=== PATIENT | male | born 1975 | race Caucasian/White ===

== ENCOUNTER 2016-07-12 10:29 | Emergency (ER) | payer BC ==
[2016-07-12 10:53] VITALS: BP 102/74
--- NOTE | 2016-07-12 12:51 | UC ---
Minor Trauma HPI - HPI Summary HPI Summary: LEFT WITHOUT BEING SEEN - History of Current Complaint Chief Complaint: UCTrauma Stated Complaint: WRIST AND ARM INJURY Time Seen by Provider: 07/12/16 12:49 - Allergies/Home Medications Allergies/Adverse Reactions: Allergies Allergy/AdvReac Type Severity Reaction Status Date / Time Shellfish Allergy Allergy Severe Hives Verified 01/05/16 14:29 Aspirin Allergy Unknown Verified 01/05/16 14:29 Reaction Details Home Medications: Home Medications Sleep Aid 07/12/16 [History] PMH/Surg Hx/FS Hx/Imm Hx Endocrine History Of: Denies: Diabetes, Thyroid Disease Cardiovascular History Of: Reports: Cardiac Disorders - Bradycardia, Pacemaker/ ICD - bradycardic Denies: Hypertension, Myocardial Infarction, Congestive Heart Failure, Deep Vein Thrombosis Respiratory History Of: Reports: Asthma Denies: COPD, Pneumonia, Pulmonary Embolism GI/ History Of: Denies: Ulcer, Gastrointestinal Bleed, Gall Bladder Disease, Kidney Stones, Renal Disease, Urosepsis Neurological History Of: Denies: TIA, Dementia, Seizures, Migraine Psychological History Of: Reports: Anxiety, Bipolar Disorder Denies: Depression, Schizophrenia Cancer History Of: Denies: Lung Cancer Other History Of: Negative For: Anticoagulant Therapy - Surgical History Surgical History: Yes Surgery Procedure, Year, and Place: pacemaker 12/2011; left shoulder bone scraping - Family History Known Family History: Positive: Hypertension - father, sister, and aunt, Other - GERD-sister and father Family History: CEREBRAL ANEURYSMS - BROTHER, MGF - Social History Alcohol Use: Rare Substance Use Type: Marijuana Substance Use Comment - Amount & Last Used: daily Smoking Status (MU): Current Every Day Smoker Type: Cigarettes Amount Used/How Often: 1 ppd Length of Time of Smoking/Using Tobacco: 18 years of age Have You Smoked in the Last Year: Yes - Immunization History Most Recent Influenza Vaccination: none Review of Systems All Other Systems Reviewed And Are Negative: No Physical Exam Triage Information Reviewed: Yes Vital Signs: Initial Vital Signs Temp 97.3 F 07/12/16 10:49 Pulse 65 07/12/16 10:49 Resp 16 07/12/16 10:49 BP 102/74 07/12/16 10:49 Pulse Ox 98 07/12/16 10:49 Minor Trauma Course/Dx - Differential Dx/Diagnosis Provider Diagnoses: LEFT WITHOUT BEING SEEN Discharge - Discharge Plan Condition: Stable Disposition: LEFT WITHOUT BEING SEEN Referrals: Sadiq Tee MD [Primary Care Provider] -
== END 2016-07-12 13:05 | disposition left against medical advice (07) ==
LOC: UCEAST 10:29
DX: M25.539 Pain in unspecified wrist (principal); Z53.21 Procedure and treatment not carried out due to patient leaving prior to being seen by health care provider

== ENCOUNTER 2017-09-30 15:31 | Emergency (ER) | payer BC, MEDICAID ==
[2017-09-30 15:45] VITALS: BP 101/63
--- NOTE | 2017-09-30 16:32 | RAD ---
INDICATION: Right hand injury. TECHNIQUE: 2 views of the right hand were obtained. FINDINGS: There is soft tissue swelling adjacent to the fifth metacarpal bone. The fifth metacarpal bone appears abnormally positioned relative to the other metacarpal bones and there is likely a subluxation or dislocation at the carpal metacarpal joint. No discrete fracture is not seen. IMPRESSION: ABNORMALLY POSITIONED FIFTH METACARPAL BONE SUSPICIOUS FOR A SUBLUXATION OR DISLOCATION AT THE CARPAL METACARPAL JOINT. RECOMMEND ORTHOPEDIC CONSULTATION AND CONSIDER CT IMAGING FOR FURTHER EVALUATION.
--- NOTE | 2017-09-30 16:38 | UC ---
Upper Extremity HPI - HPI Summary HPI Summary: 42 y/o male presents to the urgent care c/o Rt hand pain s/p hitting a metal stool around 1530pm today. Pt reports he was very angry and hit the stool. His pain 10/10 and unable to move his RT #4th and 5th fingers w/ mild swelling and bruising on the lateral side of his Rt hand. Pt states mild numbness and tingling sensation over the lateral side of his hand. Pt has not taken anything to alleviate pain. Pt declines narcotics for pain. Pt deneis fever. SOB, chest pain, abdominal pain, N/V/D. - History of Current Complaint Chief Complaint: UCUpperExtremity Stated Complaint: HAND INJURY Time Seen by Provider: 09/30/17 16:26 Hx Obtained From: Patient ?: No Onset/Duration: Sudden Onset, Lasting Hours - 2 hrs, Still Present Severity Initially: Severe Severity Currently: Severe Pain Intensity: 10 Pain Scale Used: 0-10 Numeric Location Of Pain: Is Discrete @ - RT lateral side of hand Character: Sharp Aggravating Factor(s): Movement, Flexion Alleviating Factor(s): Ice, Rest Associated Signs And Symptoms: Positive: Swelling, Redness, Bruising, Numbness/ Tingling - Risk Factors Non-Orthopedic Risk Factor: Negative DVT Risk Factors: Negative Septic Arthritis Risk Factor: Negative - Allergies/Home Medications Allergies/Adverse Reactions: Allergies Allergy/AdvReac Type Severity Reaction Status Date / Time aspirin Allergy Unknown Verified 09/30/17 15:39 Reaction Details PMH/Surg Hx/FS Hx/Imm Hx Previously Healthy: Yes Cardiovascular History: Pacemaker/ICD Psychological History: Post Traumatic Stress Disorder Other History Of: Negative For: Anticoagulant Therapy - Surgical History Surgical History: Yes Surgery Procedure, Year, and Place: pacemaker 12/2011; left shoulder bone scraping - Family History Known Family History: Positive: Hypertension - father, sister, and aunt, Other - GERD-sister and father Family History: CEREBRAL ANEURYSMS - BROTHER, MGF - Social History Occupation: Employed Full-time Lives: With Family Alcohol Use: None Substance Use Type: Marijuana Substance Use Comment - Amount & Last Used: daily Smoking Status (MU): Current Every Day Smoker Type: Cigarettes Amount Used/How Often: 1 ppd Length of Time of Smoking/Using Tobacco: 18 years of age Have You Smoked in the Last Year: Yes - Immunization History Most Recent Influenza Vaccination: none Review of Systems Constitutional: Negative Skin: Bruising - RT lateral side of hand w/ mild abrasion Eyes: Negative ENT: Negative Respiratory: Negative Cardiovascular: Negative Gastrointestinal: Negative Genitourinary: Negative Motor: Decreased ROM - RT hand Musculoskeletal: Decreased ROM - RT hand and fifth finger s/p injury, Other: - RT hand pain s/p injury Neurological: Numbness - RT lateral side of hand Psychological: Negative Is Patient Immunocompromised?: No All Other Systems Reviewed And Are Negative: Yes Physical Exam - Summary Physical Exam Summary: Vital Signs Reviewed: Yes General: Well-Appearing, No Pain Distress, Well-Nourished - male w/o any apparent pain distress Eyes: Positive: Conjunctiva Clear - PERRLA, EOMI ENT: Positive: Normal ENT inspection, Hearing grossly normal, Pharynx normal, TMs normal, Uvula midline Neck: Positive: Supple, Nontender, No Lymphadenopathy Respiratory: Positive: Chest non-tender, Lungs clear, Normal breath sounds, No respiratory distress Cardiovascular: Positive: RRR, No Murmur, Pulses Normal, Brisk Capillary Refill Abdomen Description: Positive: Nontender, No Organomegaly, Soft. Negative: CVA Tenderness (R), CVA Tenderness (L) Bowel Sounds: Positive: Present Musculoskeletal: Positive: Strength Intact, Other: Neurological Exam: Normal Musculoskeletal: Positive: hand: the R hand is with obvious asymmetry and deformity when compared to the L hand on the lateral side. Mild abrasion w/ redness and brusing and sild swelling on the lateral side of the RT hand, no open wounds, mild swelling, No overlying erythema or warmth. No bony crepitus. Point tenderness over the RT fifth and fourth metacarpals. No scaphoid fullness or tenderness to direct palpation or axial load. Decreased ROM due to pain of 5th and 4th phalanx. Motor/sensory function of ulnar, radial, median nerves intact. Ulnar and radial pulses intact. capillary refill brisk. Psychological Exam: Normal Skin Exam: Normal Triage Information Reviewed: Yes Vital Signs: Initial Vital Signs Temp 97.2 F 09/30/17 15:40 Pulse 78 09/30/17 15:40 Resp 21 09/30/17 15:40 BP 101/63 09/30/17 15:40 Pulse Ox 99 09/30/17 15:40 Upper Extremity Course/Dx - Course Course Of Treatment: 42 y/o male presents to the urgent care c/o Rt hand pain s/ p hitting a metal stool around 1530pm today. Pt reports he was very angry and hit the stool. His pain 10/10 and unable to move his RT #4th and 5th fingers w/ mild swelling and bruising on the lateral side of his Rt hand. Pt states mild numbness and tingling sensation over the lateral side of his hand. Pt has not taken anything to alleviate pain. Pt declines narcotics for pain. Pt deneis fever. SOB, chest pain, abdominal pain, N/V/D. Hx obtained. PE performed. Pt given at the clinic Ibuprofen PO for pain. pt tolerated well medication. X-ray of the Rt hand ordered: Impression: Abnormally position of the fifth metacarpal bone suspicion of a subluxation or dislocation at the carpal metacarpal joint, No discrete fracture observed, radiologist recommends orthopedic consult. Orthopedic cotton roll packer DR Garcia called for consult. DR Reynoso arrived at the clinic to try to reduce dislocation. DR Reynoso reduced the dislocation and immobilized the RT hand w/ an Ulnar gutter splint. Pt tolerated well procedure. Pt neurovascular intact after splint procedure. Pt was able to flex 4th and 5th phlanx better, deformity improved. Pt Advised RICE: Rest, Ice, elevation, Rx Ibuprofen PO for pain. There was no neurovascular compromise after splint. Dr Garcia will see the PT in 5 days at her office for further management. Pt strongly advised to call her office and make an appt for [place] 10/05/2017. Pt understood and agreed w/ plan of care. pt left the clinic hemodynamically stable , A&Ox3 - Differential Dx/Diagnosis Differential Diagnosis/HQI/PQRI: Contusion, Fracture (Closed), Strain, Sprain, Other - dislocation Provider Diagnoses: 1- RT fifth carpal metacarpal joint dislocation s/p injury. 2- RT hand pain s/p injury Discharge - Sign-Out/Discharge Documenting (check all that apply): Discharge - Discharge Plan Condition: Stable Disposition: HOME Prescriptions: Ibuprofen TAB* [Motrin TAB* 800 MG] 800 mg PO Q6H PRN #30 tab PRN Reason: Pain Patient Education Materials: Finger Dislocation (ED) Referrals: Sadiq Tee MD [Primary Care Provider] - 2 Days Sandra Reynoso MD [Medical Doctor] - 1 Day Additional Instructions: 1-Please take medications as directed after meals to alleviate pain and swelling. 2-Please apply ice, keep your hand immobilized with the splint. 3- Please f/u with Orthopedic Dr Reynoso Please call to her office tomorrow and make an appt for Thursday10/05/2017 for further evaluation and treatment. - Billing Disposition and Condition Condition: STABLE Disposition: HOME
[2017-09-30] MEDS ORDERED: Ibuprofen TAB* 400 MG PO ONE (16:47)
--- NOTE | 2017-09-30 20:35 | CONS ---
CONSULTATION NOTE: DATE OF CONSULT: 09/30/17 - URGENT CARE CHIEF COMPLAINT: Right hand pain. HISTORY OF PRESENT ILLNESS: Anjel is a 42-year-old man who in anger today, punched a stool, injuring his right hand. He is right handed. He came to the [facility] and had x-rays, which show a dislocation of his fifth carpometacarpal joint. PHYSICAL EXAM: On exam, he has some abrasions on the dorsal aspect of his hand at the MP joints of the ring finger and middle finger. He has an obvious deformity of the hand, cannot make a fist with his little finger, but can flex the other fingers. He has full extension of his fingers. Skin is otherwise intact. Neurovascular function in intact. DIAGNOSTIC STUDIES/LAB DATA: X-ray AP, lateral and oblique of the right hand show the dislocation of the fifth carpometacarpal joint. There may be a small fracture fragment as well. IMPRESSION: Right fifth carpometacarpal dislocation. PLAN: With the assistance of the [facility] doctor, traction and manipulation were placed at the fifth CMC joint and there was a clunking reduction of the joint and the patient was able to relax at the end. The deformity was much improved, he was able to better flex his fingers. He was splinted in an ulnar gutter splint with wrist in little bit extension and the MP joints in little bit of flexion. I will see him back in followup in my office in 5 days for re-x-ray of the right hand to assess whether or not the CMC joint has remained reduced. If not, likely he will need surgical treatment in the form of closed reduction pinning of the right fifth carpometacarpal joint. The [facility] doctor prescribed some oral pain medication for the patient, he declined any narcotic medication and I will see him back in followup for reevaluation as mentioned in 5 days. He was instructed to continue to ice and elevate his hand and call for any problems. [id number]/[facility] #: [id number] [facility] HOSPITALDana
== END 2017-09-30 17:20 | disposition home or self-care (01) ==
LOC: UCEAST 15:31
DX: S63.054A Dislocation of other carpometacarpal joint of right hand, initial encounter (principal); S60.511A Abrasion of right hand, initial encounter; W22.8XXA Striking against or struck by other objects, initial encounter; Y93.9 Activity, unspecified; Y92.9 Unspecified place or not applicable; M79.641 Pain in right hand; Z95.810 Presence of automatic (implantable) cardiac defibrillator; F43.10 Post-traumatic stress disorder, unspecified; Z88.6 Allergy status to analgesic agent; F17.210 Nicotine dependence, cigarettes, uncomplicated
CPT/HCPCS: 26670; 99202; A9270-GY; G0463

== ENCOUNTER 2017-10-09 10:16 | Day surgery (SDC) | payer MEDICAID ==
--- NOTE | 2017-10-02 10:39 | HP ---
HISTORY AND PHYSICAL: DATE OF ADMISSION/SURGERY: 10/06/17 DATE OF OFFICE VISIT/ENCOUNTER: 10/01/17 ATTENDING SURGEON: Sandra Reynoso MD* (dictated by JUANA Chester). PROCEDURE: Right small finger carpometacarpal closed reduction and pinning. CHIEF COMPLAINT: Right fifth metacarpal subluxation. HISTORY OF PRESENT ILLNESS: This is a 42-year-old male, who suffered injury to his right hand on 09/30/17. The patient reports that out of anger, he punched a stool injuring his right hand. He went to [facility], and had x-rays which showed a dislocation of his fifth carpometacarpal joint. Dr. Reynoso was consulted and a closed reduction was performed on the joint. The patient was placed in an ulnar gutter splint. He followed up in the office with Dr. Reynoso on 10/01/17 where updated x-rays showed an incomplete reduction. Dr. Reynoso is recommending surgical intervention at this time for best outcome and the patient has consented to proceed. He has history of cardiac issues and had a pacemaker placed in 2011. He has not followed up with his butter maker in a couple of years. Prior to proceeding with surgery, we will obtain clearance from a butter maker and also obtain a CT scan of the right hand. PAST MEDICAL HISTORY: 1. Anxiety/depression. 2. Posttraumatic stress disorder. 3. History of syncope with symptomatic bradycardia. 4. Asthma. 5. History of GI bleeds. PAST SURGICAL HISTORY: 1. Pacemaker placement in 2011. 2. Left shoulder surgery. CURRENT MEDICATIONS: 1. Acetaminophen 500 mg 2 tablets p.r.n. 2. Klonopin 1 mg 1 tab t.i.d. p.r.n. anxiety. 3. Ibuprofen p.r.n. ALLERGIES: No known drug allergies. Allergy to SHELLFISH. FAMILY MEDICAL HISTORY: Bipolar disorder and hyperlipidemia. SOCIAL HISTORY: The patient is currently disabled. He is a current smoker. He smokes approximately a pack per day and has done so for the past 20 years. He also smokes marijuana on a regular basis. He drinks alcohol on rare occasion. REVIEW OF SYSTEMS: General: Negative for fevers, chills, or night sweats. No known anesthesia problems. HEENT: Negative for headache, lightheadedness, or syncopal episodes. Integumentary: Negative for abrasions, lesions, or open wounds. Cardiothoracic: Negative for hypertension. Positive for occasional chest pain related to anxiety. Negative for palpitations and edema. Pulmonary : Positive for shortness of breath with exertion, negative for chronic cough, COPD. GI: Negative for nausea, vomiting, diarrhea, constipation, and GERD. : Negative for nocturia, urinary frequency, urgency, history of UTIs, and kidney problems. Musculoskeletal: Positive for current complaint. Negative for chronic or intermittent back pain. Neurologic: Positive for PTSD, depression/anxiety. Negative for paresthesias, numbness, history of seizure, stroke, or epilepsy. Endocrine: Negative for diabetes and thyroid issues. Hematologic: Negative for easy bruising, anemia, excessive bleeding, history of DVT. Infectious Disease: Negative for history of MRSA, hepatitis C, HIV. PHYSICAL EXAMINATION GENERAL: Well-developed, well-nourished, 42-year-old male in no acute distress. VITAL SIGNS: Height 6 feet tall, weight 150 pounds, pulse rate 81, blood pressure 136/80. HEENT: Normocephalic, atraumatic. Pupils are equal, round, and reactive to light and accommodation. Extraocular movements are intact. Throat is clear. NECK: Supple. No palpable lymph nodes. RESPIRATORY: Lungs are clear to auscultation bilaterally. No wheezes, rales, or rhonchi. CARDIOVASCULAR: Regular rate and rhythm. S1, S2. No murmurs, rubs, or gallops. ABDOMEN: Positive bowel sounds, soft, nontender. NEUROLOGIC: Alert and oriented x3. Cranial nerves II through XII are intact. Sensation is intact to light touch. MUSCULOSKELETAL: On inspection of his right hand, it is enclosed in an ulnar gutter splint. There is no appreciable swelling in the exposed fingers. Sensation is intact to distal finger tips. Capillary refill is brisk. IMAGING STUDIES: X-rays, AP, lateral, and oblique, of the right hand show an incomplete reduction of the fifth carpometacarpal joint. PLAN: The patient is scheduled to undergo a right small finger carpometacarpal closed reduction and pinning with Dr. Reynoso on 10/06/17. He will return to the office 10 days postop for followup. A prescription for Wellpinit was e-scribed to the patient's pharmacy for postoperative pain management. A CT scan will be obtained of the right hand prior to proceeding with surgery and the patient will get clearance from a butter maker prior to surgery. JUANA CHESTER [id number]/[facility] #: [id number] MTDDana
[~2017-10-09 10:16] MED LIST: Buffered Lidocaine 0.9% SYRIN* 5 ML/SYR SYRINGE INTRADERM ONE; Famotidine TAB* 20 MG ONE; Famotidine TAB* 20 MG PO ONE
[2017-10-09] MEDS ORDERED: Famotidine TAB* 20 MG ONE ×2 (10:26)
[2017-10-09] MEDS ORDERED: ceFAZolin 2 GM PREMIX (*) 2 GM/50 ML BAG IVPB ONE ×2 (10:26)
[2017-10-09] MEDS ORDERED: fentaNYL* 50 MCG/ML 2 ML VIAL (100 MCG VIAL) ONE ×2 (11:14)
[2017-10-09] MEDS ORDERED: Dexamethasone IV* 4 MG/ML 1 ML (4 MG) ONE ×2 (11:14)
[2017-10-09] MEDS ORDERED: Propofol* 10 MG/ML 20 ML BTL IV PUSH ONE ×2 (11:14)
[2017-10-09] MEDS ORDERED: Ketorolac INJ* 30 MG/ML 1 ML VIAL ONE ×2 (11:14)
[2017-10-09] MEDS ORDERED: DiMENhydriNATE IV* 50 MG/ML VIAL ONE ×2 (11:14)
[2017-10-09] MEDS ORDERED: Midazolam* 1 MG/ML 5 ML VIAL (5 MG) ONE ×2 (11:14)
[2017-10-09] MEDS ORDERED: Bupivacaine 0.5% SDV PF* 10-30ML VIAL ONE ×3 (11:37→11:53)
[2017-10-09] MEDS ORDERED: Lidocaine 1% INJ* 10 MG/ML 30 ML SDV ONE (11:53)
[2017-10-09] MEDS ORDERED: Naloxone* 0.4 MG/ML 1 ML VIAL IV PRN (12:41)
[2017-10-09] MEDS ORDERED: DiMENhydriNATE IV* 50 MG/ML VIAL IV PUSH PRN (12:41)
[2017-10-09] MEDS ORDERED: Acetaminophen TAB* 325 MG PO PRN (12:41)
[2017-10-09] MEDS ORDERED: HYDROcodone/ACETAMIN 5-325 MG* 1 TAB ONE ×2 (12:58)
[2017-10-09 13:20] VITALS: BP 112/76
--- NOTE | 2017-10-09 14:32 | RAD ---
INDICATION: Right small finger carpometacarpal closed reduction and pinning, S63.054D COMPARISONS: October 01, 2017 TECHNIQUE: Fluoroscopy was provided for a surgical procedure. Total fluoroscopy time is: 1 minute, 30 seconds FINDINGS: Spot images demonstrate percutaneous fixation across the fifth CMC joint. IMPRESSION: FLUOROSCOPY WAS PROVIDED FOR A SURGICAL PROCEDURE CPT II Codes: G9500
--- NOTE | 2017-10-09 19:26 | OP ---
DATE OF OPERATION: 10/09/17 [facility] DATE OF : 75 SURGEON: Sandra Reynoso MD ACCESS SERVICES ASSISTANT: JUANA Chester ANESTHESIA: General. PRE-OP DIAGNOSIS: Fifth carpometacarpal dislocation of the right hand. POST-OP DIAGNOSIS: Fifth carpometacarpal dislocation of the right hand. OPERATIVE PROCEDURE: Closed reduction pinning of right fifth carpometacarpal joint. INDICATION FOR PROCEDURE: Anjel is a 42-year-old man, who punched a stool and injured his right hand. He suffered a dislocation of the carpometacarpal joint of his fifth finger. Closed reduction attempted in the [facility] was not successful and CT scan shows persistent CMC dislocation. He presents for closed reduction pinning of the right fifth carpometacarpal joint. The patient had cardiology clearance prior to the surgery. ESTIMATED BLOOD LOSS: Zero. DESCRIPTION OF PROCEDURE: The patient was brought to the operating room, was given a general anesthetic, and placed in the supine position on the operating table with a tourniquet around his right forearm. The tourniquet was not used during the procedure. The joint was manipulated with traction and direct pressure on the base of the metacarpal and then the joint was successfully reduced. Its position was checked on the C-arm in the AP and lateral views and found to be satisfactory. Next, two 0.045 inch K-wires were driven through the base of the metacarpal and into the hamate and capitate. This held the reduction in very good position. The pins were bent and cut and then dressed with Xeroform, 4x4, Webril, and an ulnar gutter splint. The patient tolerated the procedure well and was brought to the recovery room in good condition. [id number]/[facility] #: [id number] [facility]ENTERDana
== END 2017-10-09 13:32 | disposition home or self-care (01) ==
LOC: OREAST 10:16
PROVIDERS: ATTEND Orthopaedic Surgery
DX: S63.051D Subluxation of other carpometacarpal joint of right hand, subsequent encounter (principal); F41.8 Other specified anxiety disorders; F43.10 Post-traumatic stress disorder, unspecified; J45.909 Unspecified asthma, uncomplicated; Z95.0 Presence of cardiac pacemaker; F17.210 Nicotine dependence, cigarettes, uncomplicated; R55 Syncope and collapse; R00.1 Bradycardia, unspecified; W22.8XXD Striking against or struck by other objects, subsequent encounter; Y92.9 Unspecified place or not applicable
CPT/HCPCS: 76000; A9270-GY; C1776; J0690; J1100; J1240; J1885; J2250; J2704; J3010